=== PATIENT | female | born 1995 | race Caucasian/White ===

== ENCOUNTER → 2023-10-20 10:55 | Outpatient (REF) | payer OTHER, SELFPAY | LOC: PNTC 10:55 | PROVIDERS: ATTENDING PHYSICIAN Obstetrics & Gynecology | DX: Z34.82 Encounter for supervision of other normal pregnancy, second trimester (principal) | CPT/HCPCS: 76805 ==

== ENCOUNTER → 2024-02-03 09:02 | Outpatient (REF) | payer OTHER, SELFPAY | LOC: PNTC 09:02 | PROVIDERS: ATTENDING PHYSICIAN Obstetrics & Gynecology | DX: Z34.03 Encounter for supervision of normal first pregnancy, third trimester (principal); O26.13 Low weight gain in pregnancy, third trimester; O26.843 Uterine size-date discrepancy, third trimester | CPT/HCPCS: 76816 ==